=== PATIENT | female | born 2000 | race Caucasian/White ===

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

== ENCOUNTER 2018-12-10 13:09 | Emergency (ER) | payer BC ==
[2018-12-10 13:18] VITALS: BP 109/60
--- NOTE | 2018-12-10 13:32 | ED ---
Throat Pain/Nasal Congestion - HPI Summary HPI Summary: 18 yr old with two weeks of sinus congestion, nasal drainage, and also ear pain. She has trouble hearing due to feeling like fluid in ears. No fever or chills. She has sinus pressure that is moderate. - History of Current Complaint Chief Complaint: UCGeneralIllness Time Seen by Provider: 12/10/18 13:20 - Allergies/Home Medications Allergies/Adverse Reactions: Allergies Allergy/AdvReac Type Severity Reaction Status Date / Time No Known Allergies Allergy Verified 12/10/18 13:17 Home Medications: Home Medications Spironolactone TAB* [Aldactone TAB*] 1 dose PO BID 12/10/18 [History Confirmed 12/10/18] guaiFENesin [Mucinex] 600 mg PO BID 12/10/18 [History Confirmed 12/10/18] PMH/Surg Hx/FS Hx/Imm Hx - Surgical History Surgery Procedure, Year, and Place: wisdom teeth, colonoscopy, endoscopy Infectious Disease History: No Infectious Disease History: Denies: Traveled Outside the [place] in Last 30 Days - Family History Known Family History: Positive: None - Social History Alcohol Use: Occasionally Substance Use Type: Reports: None Smoking Status (MU): Never Smoked Tobacco Review of Systems Constitutional: Negative Positive: Ear Ache, Nasal Discharge All Other Systems Reviewed And Are Negative: Yes Physical Exam Triage Information Reviewed: Yes Vital Signs On Initial Exam: Initial Vitals Temp Pulse Resp BP Pulse Ox 98.6 F 61 14 109/60 100 12/10/18 13:13 12/10/18 13:13 12/10/18 13:13 12/10/18 13:13 12/10/18 13:13 Vital Signs Reviewed: Yes Appearance: Positive: Well-Appearing, No Pain Distress Skin: Positive: Warm, Skin Color Reflects Adequate Perfusion Eyes: Positive: EOMI ENT: Positive: Pharyngeal erythema, TM red - right ear with erythema. Neck: Positive: Nontender Respiratory/Lung Sounds: Positive: Clear to Auscultation, Breath Sounds Present Cardiovascular: Positive: RRR. Negative: Murmur Abdomen Description: Negative: Distended Musculoskeletal: Positive: Strength/ROM Intact Neurological: Positive: Sensory/Motor Intact, Alert, Oriented to Person Place, Time, CN Intact II-III, Normal Gait, Speech Normal Psychiatric: Positive: Normal - [place] Coma Scale Best Eye Response: 4 - Spontaneous Best Motor Response: 6 - Obeys Commands Best Verbal Response: 5 - Oriented Coma Scale Total: 15 Diagnostics - Vital Signs Vital Signs Temp Pulse Resp BP Pulse Ox 12/10/18 13:13 98.6 F 61 14 109/60 100 - Laboratory Lab Statement: Any lab studies that have been ordered have been reviewed, and results considered in the medical decision making process. EENT Course/Dx - Course Course Of Treatment: 18 yr old with sinusitis, and om. Rx with augmentin - Diagnoses Provider Diagnoses: Otitis media, Bacterial sinusitis Discharge ED - Sign-Out/Discharge Documenting (check all that apply): Patient Departure All imaging exams completed and their final reports reviewed: No Studies - Discharge Plan Condition: Good Disposition: HOME Prescriptions: Amoxicillin/Clavulanate TAB* [Augmentin TAB 875*] 875 mg PO BID #20 tab Patient Education Materials: Sinusitis (ED), Ear Infection (ED) Referrals: No Primary Care Phys,NOPCP [Primary Care Provider] - [facility] [place] [facility] [Outside] - Billing Disposition and Condition Condition: GOOD Disposition: Home
== END 2018-12-10 13:38 | disposition home or self-care (01) ==
LOC: UCCORT 13:09
DX: J32.9 Chronic sinusitis, unspecified (principal); B96.89 Other specified bacterial agents as the cause of diseases classified elsewhere; H66.91 Otitis media, unspecified, right ear
CPT/HCPCS: 99212; G0463